=== PATIENT | female | born 1975 | race Caucasian/White ===

== ENCOUNTER 2021-12-13 09:18 | Emergency (ER) | payer BC, SELFPAY ==
[2021-12-13 10:38] VITALS: BP 148/91; PULSE 73; RESP 14; TEMP 36.5; O2SAT 99; BMI 29.0
--- NOTE | 2021-12-13 12:11 | CTR_ITS ---
PROCEDURE INFORMATION: Exam: CT Abdomen And Pelvis Without Contrast Exam date and time: 12/13/2021 12:57 PM Age: 46 years old Clinical indication: Other: Back pain and sweats; Prior surgery; Surgery type: Hysto; Additional info: Flank pain TECHNIQUE: Imaging protocol: Computed tomography of the abdomen and pelvis without contrast. Radiation optimization: All CT scans at this facility use at least one of these dose optimization techniques: automated exposure control; mA and/or kV adjustment per patient size (includes targeted exams where dose is matched to clinical indication); or iterative reconstruction. COMPARISON: No relevant prior studies available. RADIATION DOSE METRICS: Total DLP (mGy-cm): 1185.45 FINDINGS: Liver: Normal. No mass. Gallbladder and bile ducts: There is a small calcified stone in the gallbladder. Pancreas: Normal. No ductal dilation. Spleen: Normal. No splenomegaly. Adrenal glands: Normal. No mass. Kidneys and ureters: There is a 3 mm x 1 mm calculus in the proximal left ureter.Mild hydronephrosis/hydroureter and associated inflammatory stranding. Stomach and bowel: Unremarkable. No obstruction. No mucosal thickening. Appendix: A normal appendix is identified. Intraperitoneal space: Unremarkable. No free air. No significant fluid collection. Vasculature: Unremarkable. No abdominal aortic aneurysm. Lymph nodes: Unremarkable. No enlarged lymph nodes. Urinary bladder: Unremarkable as visualized. Reproductive: The uterus is not visualized, consistent with hysterectomy. 2.0 cm normal dominant follicle in the left ovary. Bones/joints: Unremarkable. No acute fracture. Soft tissues: Unremarkable. CT/CT kidney stone [id number] IMPRESSION: There is a 3 mm x 1 mm calculus in the proximal left ureter with mild obstructive changes as described above.
--- NOTE | 2021-12-13 12:28 | ED_ITS ---
HPI - Back Pain/Injury General: Chief Complaint: Back Pain/Injury Stated Complaint: back pain, sweats Time Seen by Provider: 12/13/21 12:03 History of Present Illness: Patient comes in with left flank pain. States that earlier today while visiting her family member in the ICU she developed severe left-sided sharp flank pain. States she has constant pressure there with episodes of severe sharp pain. States when the initial pain hit she became very sweaty and went to the bathroom and vomited. She denies fever, cough, diarrhea, congestion. Associated symptoms: Reports vomiting; Deny abdominal pain, dysuria, fever(s) or nausea Review of Systems Const: Denies: fever(s) or body aches Eyes: Denies: change in vision or blurry vision ENMT: Denies: throat pain or odynophagia Card: Denies: chest pain or palpitations Resp: Denies: dyspnea or productive cough GI: Reports: vomiting; Denies: abdominal pain or nausea : Reports: flank pain; Denies: dysuria Musc: Denies: neck pain Skin/Breast: Denies: rash or pruritus Neuro: Denies: headache(s) or numbness in extremities Psych: Denies: anxiety or change in appetite Endo: Denies: polyuria or excessive sweating Physical Exam Const: COMMON NORMALS: no acute distress, patient oriented x3, healthy appearing and alert HENMT: COMMON NORMALS: normocephalic and atraumatic HEAD & SCALP: normocephalic and atraumatic Eye: COMMON NORMALS: Equal, round and reactive pupils present and EOMs intact bilaterally PUPIL: Yes Equal, round and reactive pupils present Neck/C-Spine: COMMON NORMALS: full ROM and supple Resp: COMMON NORMALS: normal respiratory effort, No retractions and No use of accessory muscles Cardio: COMMON NORMALS: regular rate and regular rhythm RATE: regular rate RHYTHM: regular rhythm GI: COMMON NORMALS: Normal to inspection, nondistended, normoactive bowel sounds present, Soft to palpation and non-tender PALPATION: Yes Soft to palpation Back/Pelvis: COMMON NORMALS: thoracic and lumbar spine normal to inspection and no thoracic nor lumbar tenderness Extremity: COMMON NORMALS: normal to inspection and full ROM Neuro: COMMON NORMALS: patient oriented x3 SENSORIUM/ORIENTATION: Yes alert Psych: COMMON NORMALS: mental status grossly normal and cooperative Skin: COMMON NORMALS: no rashes or lesions noted and no wounds GENERAL SKIN EXAM: no rashes or lesions noted Course Vital Signs: Vital signs: Vital Signs Temperature 97.7 F 12/13/21 10:38 Pulse Rate 71 12/13/21 12:32 Respiratory Rate 16 12/13/21 12:32 Blood Pressure 146/68 12/13/21 12:32 Pulse Oximetry 98 12/13/21 12:32 MDM - Back Pain/Injury Medical Decision Making Patient comes in with left flank pain. States that earlier today while visiting her family member in the ICU she developed severe left-sided sharp flank pain. States she has constant pressure there with episodes of severe sharp pain. States when the initial pain hit she became very sweaty and went to the bathroom and vomited. She denies fever, cough, diarrhea, congestion. Physical exam is unremarkable. Will check labs, CT, give IV Toradol, and reassess. On reassessment I talked to the patient about the test results. We will place her on Flomax, pain medication, antibiotics, and discharge with precautions to return for worsening or changing symptoms. Labs : 12/13/21 12:30 12/13/21 12:30 Radiology Impressions Abdomen/Pelvis CT 12/13/21 12:11 IMPRESSION: There is a 3 mm x 1 mm calculus in the proximal left ureter with mild obstructive changes as described above. Laboratory Results WBC 9.1 10^3/uL (4.0-10.0) 12/13/21 12:30 RBC 5.19 10^6/uL (4.1-5.3) 12/13/21 12:30 Hgb 15.3 g/dL (11.5-15.3) 12/13/21 12:30 Hct 46.1 % (37.0-47.0) 12/13/21 12:30 MCV 88.8 fl (81-99) 12/13/21 12:30 MCH 29.5 pg (28.0-34.0) 12/13/21 12:30 MCHC 33.2 g/dL (30.0-36.0) 12/13/21 12:30 RDW 12.7 % (12.1-15.1) 12/13/21 12:30 Plt Count 277 10^3/cmm (130-400) 12/13/21 12:30 MPV 9.0 fL (7.4-10.4) 12/13/21 12:30 Neut % (Auto) 78.7 % 12/13/21 12:30 Lymph % (Auto) 15.9 % 12/13/21 12:30 [place] % (Auto) 4.9 % 12/13/21 12:30 Eos % (Auto) 0.0 % 12/13/21 12:30 Baso % (Auto) 0.3 % 12/13/21 12:30 Neut # (Auto) 7.17 10^3/uL (1.8-7.7) 12/13/21 12:30 Lymph # (Auto) 1.5 10^3/uL (0.8-4.8) 12/13/21 12:30 [place] # (Auto) 0.5 10^3/uL (0.2-0.9) 12/13/21 12:30 Eos # (Auto) 0.0 10^3/uL (0.0-0.8) 12/13/21 12:30 Baso # (Auto) 0.0 10^3/uL (0.0-0.1) 12/13/21 12:30 Nucleated RBC % (auto) 0 % 12/13/21 12:30 Nucleated RBCs # 0.0 /100WBC 12/13/21 12:30 Sodium 138 mmol/L (136-145) 12/13/21 12:30 Potassium 3.8 mmol/L (3.5-5.1) 12/13/21 12:30 Chloride 101 mmol/L (98-107) 12/13/21 12:30 Carbon Dioxide 27 mmol/L (22-29) 12/13/21 12:30 Anion Gap 13.8 (5-19) 12/13/21 12:30 BUN 12 mg/dL (6-20) 12/13/21 12:30 Creatinine 0.6 mg/dL (0.5-0.9) 12/13/21 12:30 GFR Calculation 107.2 mL/min (90-130) 12/13/21 12:30 Glucose 107 mg/dL (65-115) 12/13/21 12:30 Calculated Osmolality 286 mOsm/kg (285-295) 12/13/21 12:30 Calcium 10.0 mg/dL (8.5-10.5) 12/13/21 12:30 Total Bilirubin 0.2 mg/dL (0.15-1.2) 12/13/21 12:30 AST 20 U/L (0-32) 12/13/21 12:30 ALT 22 U/L (0-33) 12/13/21 12:30 Alkaline Phosphatase 87 IU/L (35-105) 12/13/21 12:30 Total Protein 8.1 g/dL (6.6-8.7) 12/13/21 12:30 Albumin 5.2 g/dL (3.5-5.2) 12/13/21 12:30 Globulin 2.9 g/dL (1.3-4.6) 12/13/21 12:30 Lipase 21 U/L (13-60) 12/13/21 12:30 Urine Color Yellow (Yellow) 12/13/21 12:30 Urine Appearance Clear (CLEAR) 12/13/21 12:30 Urine pH 6 (5-7) 12/13/21 12:30 Ur Specific [place] 1.015 (1.005-1.030) 12/13/21 12:30 Urine Protein 1+ (Negative) H 12/13/21 12:30 Urine Glucose (UA) Norm (Normal) 12/13/21 12:30 Urine Ketones Negative (Negative) 12/13/21 12:30 Urine Blood 3+ (Negative) H 12/13/21 12:30 Urine Nitrate Negative (Negative) 12/13/21 12:30 Urine Bilirubin Neg (Negative) 12/13/21 12:30 Urine Urobilinogen Norm mg/dL (Negative) 12/13/21 12:30 Ur Leukocyte Esterase 1+ (Negative) H 12/13/21 12:30 Urine RBC 80-100 /hpf (0-2) H 12/13/21 12:30 Urine WBC Too numerous to cnt /hpf (0-5) H 12/13/21 12:30 Ur Squamous Epith Cells 0-4 /hpf (0-5) H 12/13/21 12:30 Amorphous Sediment Not Reportable 12/13/21 12:30 Urine Bacteria 2+ /hpf (NONE) H 12/13/21 12:30 Urine Mucus 1+ /hpf 12/13/21 12:30 Discharge Plan Discharge Patient Disposition: Home Clinical Impression: Kidney stone, Urinary tract infection Condition: Stable Prescriptions: New hydrocodone-acetaminophen 5-325 mg tablet 1 tab PO Q6H PRN (Reason: pain) Qty: 14 0RF Flomax 0.4 mg capsule 0.4 mg PO Q24H Qty: 4 0RF ciprofloxacin HCl 250 mg tablet 250 mg PO Q12H Qty: 6 0RF Discharge Orders: Discharge ED (Routine); Ordered 12/13/21 Ordered By: Esa Montejo Patient Instructions: Opioid Safety Coding Level of Care Code ED Cloth Shrinking Machine Operator for Gallog Fwd Exam Comprehensive
[2021-12-13 12:32] VITALS: BP 146/68; PULSE 71; RESP 16; O2SAT 98
[2021-12-13 12:43] LABS: Basophils % 0.3 %; Hematocrit 46.1 % (37.0-47.0); Hemoglobin 15.3 g/dL (11.5-15.3); Lymphocytes # 1.5 10^3/uL (0.8-4.8); Lymphocytes % 15.9 %; Mean Corpuscular HGB Conc 33.2 g/dL (30.0-36.0); Mean Corpuscular Hemoglobin 29.5 pg (28.0-34.0); Mean Corpuscular Volume 88.8 fl (81-99); Monocytes # 0.5 10^3/uL (0.2-0.9); Monocytes % 4.9 %; Neutrophils # 7.17 10^3/uL (1.8-7.7); Neutrophils % 78.7 %; Nucleated Red Blood Cells % 0 %; Platelet Count 277 10^3/cmm (130-400); Red Blood Count 5.19 10^6/uL (4.1-5.3); Red Cell Distribution Width 12.7 % (12.1-15.1); White Blood Count 9.1 10^3/uL (4.0-10.0)
[2021-12-13] MEDS: sodium chloride 0.9% 1,000 ML 999 ML IV (12:47)
[2021-12-13] MEDS: ketorolac 30 mg/mL INJ 15 MG IVP (12:48)
[2021-12-13 12:56] LABS: Glucose Urine UA Norm (Normal); Ketones Urine Negative (Negative); Protein Urine 1+ (Negative); Specific Gravity, Urine 1.015 (1.005-1.030); Urine Appearance Clear (CLEAR); Urine Color Yellow (Yellow); pH Urine 6 (5-7)
[2021-12-13 12:57] LABS: Add Urine Microscopic? YES; Bilirubin Urine Neg (Negative); Blood Urine 3+ (Negative); Leukocyte Esterase Urine 1+ (Negative); Nitrate Urine Negative (Negative); Urobilinogen Urine Norm (Negative)
[2021-12-13 13:01] LABS: Bacteria Urine 2+ /hpf; Mucus Urine 1+ /hpf; RBC Urine 80-100 /hpf (0-2); Squamous Epithelial Cell Urine 0-4 /hpf (0-5); WBC Urine TOO NUMEROUS TO CNT /hpf (0-5)
[2021-12-13 13:02] LABS: Add Urine Culture? Yes
[2021-12-13 13:06] LABS: Alanine Aminotransferase 22 U/L (0-33); Albumin Level 5.2 g/dL (3.5-5.2); Alkaline Phosphatase 87 IU/L (35-105); Anion Gap 13.8 (5-19); Aspartate Amino Transferase 20 U/L (0-32); Blood Urea Nitrogen 12 mg/dL (6-20); Carbon Dioxide 27 mmol/L (22-29); Chloride 101 mmol/L (98-107); Globulin 2.9 g/dL (1.3-4.6); Glomerular Filtration Rate 107.2 mL/min (90-130); Glucose 107 mg/dL (65-115); Lipase 21 U/L (13-60); Osmolality Calculated 286 mOsm/kg (285-295); Potassium 3.8 mmol/L (3.5-5.1); Sodium 138 mmol/L (136-145); Total Bilirubin 0.2 mg/dL (0.15-1.2); Total Protein 8.1 g/dL (6.6-8.7)
[2021-12-13 14:04] VITALS: BP 140/71; PULSE 68; RESP 16; O2SAT 98
== END 2021-12-13 14:06 | disposition home or self-care (01) ==
PROVIDERS: Physician Assistant; Emergency Provider Emergency Medicine
DX: N39.0 Urinary tract infection, site not specified (principal); N20.0 Calculus of kidney
CPT/HCPCS: 74176; 80053; 81001; 83690; 85025; 87086; 96361; 96374; 99285; J1885; J7030

== ENCOUNTER 2023-06-17 13:48 | Outpatient (CLI) | payer BC, SELFPAY ==
--- NOTE | 2023-06-17 13:56 | MM_ITS ---
WS: [id number] BILATERAL 3D TOMOSYNTHESIS DIGITAL SCREENING MAMMOGRAPHY WITH CAD CLINICAL INFORMATION: SCREENING HISTORY: Screening mammogram. No current complaints. COMPARISON: 2018 TECHNIQUE: Bilateral CC and MLO views. FINDINGS: The breasts are composed of heterogeneous fibroglandular density tissue, which can limit the detectio n of small underlying mass lesions. New ovoid nodular density upper outer LEFT breast measuring 12 mm . Recommend further evaluation with ultrasound. LEFT breast parenchyma is otherwise unchanged. Incidental punctate and lucent centered calcifications. RIGHT breast is unremarkable. IMPRESSION: MM/[place] [id number] BI-RADS: 0-Incomplete: Need additional imaging evaluation FOLLOW UP: Need Additional Imaging Recommend ultrasound upper outer LEFT breast for evaluation of the new 12 mm ov oid nodular density
== END 2023-06-17 13:49 | disposition home or self-care (01) ==
LOC: RAD 13:48
PROVIDERS: PCP Physician Assistant; Visit Provider Physician Assistant
DX: Z12.31 Encounter for screening mammogram for malignant neoplasm of breast (principal); R92.333 Mammographic heterogeneous density, bilateral breasts; N63.21 Unspecified lump in the left breast, upper outer quadrant
CPT/HCPCS: 77063; 77067

== ENCOUNTER 2023-07-14 14:42 | Outpatient (CLI) | payer BC, SELFPAY ==
--- NOTE | 2023-07-14 15:03 | US_ITS ---
WS: [id number] ULTRASOUND BREAST LEFT TECHNIQUE: Ultrasound left breast focused area of concern. CLINICAL INFORMATION: ABNORMAL MAMMO COMPARISON: 06/17/2023 FINDINGS: Ultrasound LEFT breast upper outer quadrant. Simple cyst upper outer quadrant near the 12 o'clock pos ition measuring 11 x 12 x 4 mm. This is benign. No other suspicious findings. Recommend return to [facility] screening mammography IMPRESSION: BI-RADS 2 benign Recommend return to annual screening mammography.
== END 2023-07-14 14:43 | disposition home or self-care (01) ==
LOC: RAD 14:43
PROVIDERS: PCP Physician Assistant; Visit Provider Physician Assistant
DX: R92.8 Other abnormal and inconclusive findings on diagnostic imaging of breast (principal)
CPT/HCPCS: 76642

== ENCOUNTER 2023-11-05 15:34 | Emergency (ER) | payer BC, SELFPAY ==
[2023-11-05 15:46] VITALS: BP 135/86; PULSE 63; RESP 17; TEMP 36.5; O2SAT 100; BMI 26.6
[2023-11-05 16:14] LABS: Basophils % 0.4 %; Hematocrit 40.5 % (36-47); Lymphocytes # 1.6 10^3/uL (0.8-4.8); Lymphocytes % 27.7 %; Mean Corpuscular HGB Conc 33.3 g/dL (30-55); Mean Corpuscular Hemoglobin 29.9 pg (27-33); Mean Corpuscular Volume 89.8 fl (85-98); Mean Platelet Volume 9.2 fL (7.4-10.4); Monocytes # 0.5 10^3/uL (0.2-0.9); Monocytes % 8.7 %; Neutrophils # 3.56 10^3/uL (1.8-7.7); Nucleated Red Blood Cells % 0 %; Platelet Count 235 10^3/cmm (157-399); Red Blood Count 4.51 10^6/uL (3.85-5.65); Red Cell Distribution Width 12.5 % (12.1-15.1); White Blood Count 5.64 10^3/uL (3.29-11.43)
--- NOTE | 2023-11-05 16:36 | CTR_ITS ---
PROCEDURE INFORMATION: Exam: CT Abdomen And Pelvis Without Contrast Exam date and time: 11/05/2023 5:05 PM Age: 48 years old Clinical indication: Abdominal pain; Flank; Right; Prior surgery; Surgery date: 6+ months; Surgery type: Hyster; Additional info: Flank pain TECHNIQUE: Imaging protocol: Computed tomography of the abdomen and pelvis without contrast. Radiation optimization: All CT scans at this facility use at least one of these dose optimization techniques: automated exposure control; mA and/or kV adjustment per patient size (includes targeted exams where dose is matched to clinical indication); or iterative reconstruction. COMPARISON: CT kidney stone [id number] 12/13/2021 12:57 PM RADIATION DOSE METRICS: Total DLP (mGy-cm): 624.34 FINDINGS: Liver: Normal. No mass. Gallbladder and bile ducts: Normal. No calcified stones. No ductal dilation. Pancreas: Normal. No ductal dilation. Spleen: Normal. No splenomegaly. Adrenal glands: Normal. No mass. Kidneys and ureters: Probable interval appearance of 3 mm left UVJ stone with borderline left hydronephrosis. No obvious right hydronephrosis or right ureteral stone. Stomach and bowel: Unremarkable. No obstruction. No mucosal thickening. Appendix: No evidence of appendicitis. Intraperitoneal space: Unremarkable. No free air. No significant fluid collection. Vasculature: Unremarkable. No abdominal aortic aneurysm. Lymph nodes: Unremarkable. No enlarged lymph nodes. Urinary bladder: Unremarkable as visualized. Reproductive: Unremarkable as visualized. Bones/joints: Unremarkable. No acute fracture. Soft tissues: Unremarkable. CT/CT abdomen pelvis wo con [id number] IMPRESSION: 1. Probable interval appearance of 3 mm left UVJ stone with borderline left hydronephrosis. 2. No obvious right hydronephrosis or right ureteral stone.
[2023-11-05 16:37] LABS: Alanine Aminotransferase 37 U/L (0-33); Albumin Level 4.6 g/dL (3.5-5.2); Alkaline Phosphatase 90 U/L (35-105); Anion Gap 13.7 (5-19); Aspartate Amino Transferase 25 U/L (0-32); Blood Urea Nitrogen 10 mg/dL (6-20); Calcium 9.3 mg/dL (8.5-10.5); Carbon Dioxide 24 mmol/L (22-29); Chloride 104 mmol/L (98-107); Creatinine Clr Calc Pharmacy 100.5507; Globulin 2.4 g/dL (1.3-4.6); Glomerular Filtration Rate 88.9 mL/min (90-130); Glucose 93 mg/dL (65-115); Lipase 25 U/L (13-60); Osmolality Calculated 285 mOsm/kg (285-295); Potassium 3.7 mmol/L (3.5-5.1); Sodium 138 mmol/L (136-145); Total Bilirubin 0.3 mg/dL (0.15-1.2)
--- NOTE | 2023-11-05 16:37 | ED_ITS ---
HPI - Abdominal Pain 2 General: Chief Complaint: Abdominal Pain Stated Complaint: abd pain, trouble urinating Time Seen by Provider: 11/05/23 16:20 History of Present Illness: 48-year-old [facility] flank pain, trouble urinating and some nausea. This came on fairly suddenly a couple of hours ago and was pretty severe initially. She said she felt like she could not urinate while the pain was happening. She is a history of kidney stones and recurrent urinary tract infections. She said the pain has eased somewhat now. No known fever. No chest pain. No cough. No altered mental status. Review of Systems 2 Narrative: Constitutional symptoms: Negative except as documented in HPI. Skin symptoms: Negative except as documented in HPI. Eye symptoms: Negative except as documented in HPI. ENMT symptoms: Negative except as documented in HPI. Respiratory symptoms: Negative except as documented in HPI. Cardiovascular symptoms: Negative except as documented in HPI. Gastrointestinal symptoms: Negative except as documented in HPI. Genitourinary symptoms: Negative except as documented in HPI. Musculoskeletal symptoms: Negative except as documented in HPI. Neurologic symptoms: Negative except as documented in HPI. Psychiatric symptoms: Negative except as documented in HPI. Endocrine symptoms: Negative except as documented in HPI. Physical Exam 2 Narrative: EXAM NARRATIVE: General: Alert, no acute distress. Skin: Warm, dry. Head: Normocephalic, atraumatic. Neck: Supple, trachea midline. Eye: Extraocular movements are intact. Ears, nose, mouth and throat: mucosa moist. Cardiovascular: Regular, Normal peripheral perfusion. Respiratory: Lungs are clear to auscultation, respirations are non-labored, breath sounds are equal, Symmetrical chest wall expansion. Gastrointestinal: Soft, Nontender, Non distended, Normal bowel sounds. Musculoskeletal: Normal ROM, no deformity. Neurological: Alert and oriented, No focal neurological deficit observed. Psychiatric: Cooperative, appropriate mood & affect. Course 2 Vital Signs: Vital signs: Vital Signs Temperature 97.7 F 11/05/23 15:46 Pulse Rate 63 11/05/23 15:46 Respiratory Rate 17 11/05/23 15:46 Blood Pressure 135/86 11/05/23 15:46 Pulse Oximetry 100 11/05/23 15:46 Oxygen Delivery Me thod Room Air 11/05/23 15:46 MDM - Abdominal Pain Medical Decision Making Medical decision making: Differential diagnosis including but not limited to and based on the above HPI, review of systems and physical exam: Ureterolithiasis. Urinary tract infection. Appendicitis. Cholecystis. Musculoskeletal / back pain. Pyelonephritis Orders placed to evaluate differential diagnosis based on the above differential, HPI and physical exam Lab Review: Laboratory results were reviewed and interpreted by myself the emergency room physician. No leukocytosis. White count 5.6. No anemia hemoglobin is 13.5. BUN and creatinine are 10 and 0.7. Urinalysis is positive for hematuria but not indicative of infection. Would indicate unlikely stone. CT of the abdomen pelvis without contrast: Left 3 mm UVJ stone with questionable hydronephrosis. This was reviewed and interpreted by myself the emergency room physician. I also reviewed the radiology report. I reviewed the patient's medical record. Reexamination: Patient remained stable. She has had no pain while she is been here. No increased work of breathing. No altered mental status. Assessment and plan: Ureterolithiasis ?Patient is currently pain-free given no treatment here. Called in Flomax, pain meds and nausea meds. - Discharged home - Discussed plan with patient. Answered any questions. - Evaluation and treatment of this problem were appropriate in the emergency setting. Lab Data 11/05/23 16:05 11/05/23 16:05 Labs/Radiology: Radiology Impressions Abdomen/Pelvis CT 11/05/23 16:36 IMPRESSION: 1. Probable interval appearance of 3 mm left UVJ stone with borderline left hydronephrosis. 2. No obvious right hydronephrosis or right ureteral stone. Laboratory Results WBC 5.64 10^3/uL (3.29-11.43) 11/05/23 16:05 RBC 4.51 10^6/uL (3.85-5.65) 11/05/23 16:05 Hgb 13.50 g/dL (11.27-16.99) 11/05/23 16:05 Hct 40.5 % (36-47) 11/05/23 16:05 MCV 89.8 fl (85-98) 11/05/23 16:05 MCH 29.9 pg (27-33) 11/05/23 16:05 MCHC 33.3 g/dL (30-55) 11/05/23 16:05 RDW 12.5 % (12.1-15.1) 11/05/23 16:05 Plt Count 235 10^3/cmm (157-399) 11/05/23 16:05 MPV 9.2 fL (7.4-10.4) 11/05/23 16:05 Neut % (Auto) 63.0 % 11/05/23 16:05 Lymph % (Auto) 27.7 % 11/05/23 16:05 [place] % (Auto) 8.7 % 11/05/23 16:05 Eos % (Auto) 0.0 % 11/05/23 16:05 Baso % (Auto) 0.4 % 11/05/23 16:05 Neut # (Auto) 3.56 10^3/uL (1.8-7.7) 11/05/23 16:05 Lymph # (Auto) 1.6 10^3/uL (0.8-4.8) 11/05/23 16:05 [place] # (Auto) 0.5 10^3/uL (0.2-0.9) 11/05/23 16:05 Eos # (Auto) 0.0 10^3/uL (0.0-0.8) 11/05/23 16:05 Baso # (Auto) 0.0 10^3/uL (0.0-0.1) 11/05/23 16:05 Nucleated RBC % (auto) 0 % 11/05/23 16:05 Nucleated RBCs # 0.0 /100WBC 11/05/23 16:05 Sodium 138 mmol/L (136-145) 11/05/23 16:05 Potassium 3.7 mmol/L (3.5-5.1) 11/05/23 16:05 Chloride 104 mmol/L (98-107) 11/05/23 16:05 Carbon Dioxide 24 mmol/L (22-29) 11/05/23 16:05 Anion Gap 13.7 (5-19) 11/05/23 16:05 BUN 10 mg/dL (6-20) 11/05/23 16:05 Creatinine 0.7 mg/dL (0.5-0.9) 11/05/23 16:05 GFR Calculation 88.9 mL/min (90-130) L 11/05/23 16:05 Glucose 93 mg/dL (65-115) 11/05/23 16:05 Calculated Osmolality 285 mOsm/kg (285-295) 11/05/23 16:05 Calcium 9.3 mg/dL (8.5-10.5) 11/05/23 16:05 Total Bilirubin 0.3 mg/dL (0.15-1.2) 11/05/23 16:05 AST 25 U/L (0-32) 11/05/23 16:05 ALT 37 U/L (0-33) H 11/05/23 16:05 Alkaline Phosphatase 90 U/L (35-105) 11/05/23 16:05 Total Protein 7.0 g/dL (6.6-8.7) 11/05/23 16:05 Albumin 4.6 g/dL (3.5-5.2) 11/05/23 16:05 Globulin 2.4 g/dL (1.3-4.6) 11/05/23 16:05 Lipase 25 U/L (13-60) 11/05/23 16:05 HCG, Qual Negative (Negative) 11/05/23 16:05 Urine Color Yellow (Yellow) 11/05/23 16:02 Urine Appearance Slightly cloudy (CLEAR) 11/05/23 16:02 Urine pH 6 (5-7) 11/05/23 16:02 Ur Specific [place] 1.020 (1.005-1.030) 11/05/23 16:02 Urine Protein Neg (Negative) 11/05/23 16:02 Urine Glucose (UA) Norm (Normal) 11/05/23 16:02 Urine Ketones Negative (Negative) 11/05/23 16:02 Urine Blood 3+ (Negative) H 11/05/23 16:02 Urine Nitrate Negative (Negative) 11/05/23 16:02 Urine Bilirubin Neg (Negative) 11/05/23 16:02 Urine Urobilinogen Norm mg/dL (Negative) 11/05/23 16:02 Ur Leukocyte Esterase Negative (Negative) 11/05/23 16:02 Urine RBC >100 /hpf (0-2) H 11/05/23 16:02 Urine WBC 0-4 /hpf (0-5) H 11/05/23 16:02 Ur Squamous Epith Cells 5-10 /hpf (0-5) H 11/05/23 16:02 Amorphous Sediment Not Reportable 11/05/23 16:02 Urine Bacteria Trace /hpf (NONE) 11/05/23 16:02 Urine Mucus 1+ /hpf 11/05/23 16:02 All radiology interpretation(s) finalized by discharge Discharge Plan Discharge Patient Disposition: Home Clinical Impression: Ureterolithiasis Condition: Stable Prescriptions: New hydrocodone-acetaminophen 5-325 mg tablet 1 tab PO Q6H PRN (Reason: pain) Qty: 20 0RF ondansetron 8 mg tablet,disintegrating 8 mg PO .q6 PRN (Reason: nausea and vomiting) Qty: 14 0RF tamsulosin [Flomax] 0.4 mg capsule 0.4 mg PO DAILY Qty: 30 0RF No Action hydrocodone-acetaminophen 5-325 mg tablet 1 tab PO Q6H PRN (Reason: pain) Qty: 14 0RF Flomax 0.4 mg capsule 0.4 mg PO Q24H Qty: 4 0RF ciprofloxacin HCl 250 mg tablet 250 mg PO Q12H Qty: 6 0RF Discharge Orders: Discharge ED (Routine); Ordered 11/05/23 Ordered By: Kelly Rodriguez Referrals: Drea Vega PA [Primary Care Provider] - 4-7 days Discharge Diet: Advance as tolerated Discharge Activity: Resume usual activity Patient Instructions: Opioid Safety, Pain Management Activity Restrictions/Additional Instructions: Call for appointment with urology. If fever (temp >100.4) develops return to the emergency room immediately, as this is an emergency. Take nausea medication prior to taking pain medications. You have been screened and evaluated and felt safe for discharge. Health conditions do change or evolve sometimes and as such it is important that you follow up with your Primary Doctor to be re checked, 3-5 days is a general good time frame for follow up. You are always welcome to return to the ED for re assessment if your symptoms are worsening or you have new concerns Coding Level of Care Code ED Agricultural Lender for Galo Armstrong
[2023-11-05 16:48] LABS: HCG, Serum Qual Negative (Negative)
[2023-11-05 17:00] LABS: Bilirubin Urine Neg (Negative); Blood Urine 3+ (Negative); Glucose Urine UA Norm (Normal); Ketones Urine Negative (Negative); Nitrate Urine Negative (Negative); Protein Urine Neg (Negative); Urine Appearance Slightly Cloudy (CLEAR); Urine Color Yellow (Yellow); Urobilinogen Urine Norm (Negative); pH Urine 6 (5-7)
[2023-11-05 17:01] LABS: Add Urine Culture? Yes; Add Urine Microscopic? YES; Bacteria Urine TRACE /hpf; Leukocyte Esterase Urine Negative (Negative); Mucus Urine 1+ /hpf; RBC Urine >100 /hpf (0-2); WBC Urine 0-4 /hpf (0-5)
[2023-11-05 18:41] VITALS: BP 135/86; PULSE 63; RESP 17; TEMP 36.5; O2SAT 100
== END 2023-11-05 18:42 | disposition home or self-care (01) ==
PROVIDERS: Nurse Practitioner Family; Emergency Provider Emergency Medicine; PCP Physician Assistant
DX: N20.1 Calculus of ureter (principal); Z87.442 Personal history of urinary calculi; Z87.440 Personal history of urinary (tract) infections
CPT/HCPCS: 36415; 74176; 80053; 81001; 83690; 84703; 85025; 87086; 99284